=== PATIENT | male | born 1970 | race Hispanic/Latino ===

== ENCOUNTER 2020-02-02 23:57 | Emergency (ER) | payer BC ==
[~2020-02-02] VITALS: Ht 172.7 cm; Wt 102.1 kg
[~2020-02-02 23:57] MED LIST: DOXYCYCLINE HY150 MG PO
[2020-02-03] MEDS ORDERED: MULTIVITAMINS- 12 INJECTION 10 ML, FOLIC ACID MDV 5 MG, THIAMINE HCL INJ 100 MG in SODI... IV ONE ×4
[2020-02-03] MEDS ORDERED: SODIUM CHLORIDE 0.9% 1000ML 1,000 ML IV ONE
[2020-02-03] MEDS ORDERED: SODIUM CHLORIDE 0.9% 1000ML 1,000 ML ONE (00:07)
[2020-02-03 00:24] LABS: BASOPHILS # (AUTO) 0.1 (0.0-0.1); BASOPHILS % 0.6 % (0.0-1.0); EOSINOPHILS % 0.2 % (0.0-6.0); HEMATOCRIT 44.2 % (38.2-49.6); HEMOGLOBIN 14.6 g/dL (14.0-18.0); LYMPHOCYTES # (AUTO) 1.4 (1.0-3.2); LYMPHOCYTES % 17.1 % (18.0-39.1); MEAN CORPUSCULAR HEMOGLOBIN 30.4 pg (28-32); MEAN CORPUSCULAR VOLUME 91.9 fL (81-99); MONOCYTES # (AUTO) 0.6 (0.2-0.8); MONOCYTES % 7.2 % (4.4-11.3); NEUTROPHILS # (AUTO) 6.2 (2.1-6.9); NEUTROPHILS % 74.5 % (38.7-80.0); PLATELET COUNT 220 x10e3/uL (140-360); RED BLOOD COUNT 4.81 x10e6/uL (4.3-5.7); RED CELL DISTRIBUTION WIDTH 13.5 % (11.7-14.4)
--- NOTE | 2020-02-03 00:24 | Emergency Department Note ---
History of Present Illnes History of Present Illness Chief Complaint: General Medicine Complaints History of Present Illness This is a 50 year old male presents with complaint of weakness and dizziness especially more so when he stands up. Patient reports that from 8 PM to 4 AM he consumed a very large amount of alcohol and then slept most of the day. States when he woke up had a hangover didn't feel like eating or drinking then tonight got to the point where when he stands up he feels weak and dizzy. Per EMS on a stated patient up at home his heart rate went from 106-146. Patient denies chest pain shortness of breath nausea vomiting and diarrhea. Patient also denies abdominal pain. . Historian: Patient Arrival Mode: [facility] Onset (how long ago): hour(s) (2) Location: ALL OVER Quality: DIZZY AND WEAKNESS, ESPICIALLY WHEN HE STANDS UP Radiation: non-radiation Severity: moderate Onset quality: gradual Duration (how long): hour(s) (2) Timing of current episode: constant Progression: waxing and waning Chronicity: new Context: recent illness, recent surgery Relieving factors: none Exacerbating factors: none Associated symptoms: denies other symptoms Treatments prior to arrival: none Past Medical/Family History Physician Review I have reviewed the patient's past medical and family history. Any updates have been documented here. Past Medical History Recent Fever: No Clinical Suspicion of Infectio: No New/Unexplained Change in Ment: No Past Medical History: Hypertension Past Surgical History: Appendectomy Social History Smoking Cessation: Never Smoker Alcohol Use: Social Any Illegal Drug Use: No Family History Family history of heart diseas: No Other Last Tetanus: UTD Review of Systems Review of Systems Constitutional: no symptoms EENTM: no symptoms Cardiovascular: no symptoms Respiratory: no symptoms Gastrointestinal: no symptoms Genitourinary: no symptoms Musculoskeletal: no symptoms Neurological: as per HPI Psychological: no symptoms Endocrine: no symptoms Hematological/Lymphatic: no symptoms Review of other systems All other systems reviewed and negative. Physical Exam Related Data Allergies: Coded Allergies: No Known Allergies (Unverified , 06/24/16) Triage Vital Signs Vital Signs Date Time Temp Pulse Resp B/P (MAP) Pulse Ox O2 Delivery O2 Flow Rate FiO2 02/03/20 00:06 98.5 106 21 150/89 98 Vital signs reviewed: Yes Physical Exam CONSTITUTIONAL Constitutional: well-developed, well-nourished HENT HENT: normocephalic, atraumatic, mucosae dry (SEVERE), nose normal HENT L/R: left ext ear normal, right ext ear normal EYES Eyes: PERRL, conjunctivae normal NECK Neck: ROM normal PULMONARY Pulmonary: effort normal, breath sounds normal CARDIOVASCULAR Cardiovascular: regular rhythm, heart sounds normal, capillary refill normal, normal rate GASTROINTESTINAL Abdominal: soft, nontender, bowel sounds normal GENITOURINARY Genitourinary: exam deferred SKIN Skin: warm, dry MUSCULOSKELETAL Musculoskeletal: ROM normal NEUROLOGICAL Neurological: alert, oriented x 3, no gross motor or sensory deficits PSYCHOLOGICAL Psychological: mood/affect normal, judgement normal Results Laboratory Laboratory Laboratory Tests Test 02/03/20 00:45 02/03/20 00:01 Urine Color Yellow (YELLOW) Urine Clarity Clear (CLEAR) Urine pH 8.5 (5 - 7) Urine Specific [place] 1.020 (1.010-1.025) Urine Protein Negative (NEGATIVE) Urine Glucose (UA) Negative (NEGATIVE) Urine Ketones Trace (NEGATIVE) Urine Blood Negative (NEGATIVE) Urine Nitrite Negative (NEGATIVE) Urine Bilirubin Negative (NEGATIVE) Urine Urobilinogen 0.2 mg/dL (0.2 - 1) Urine Leukocyte Esterase Negative (NEGATIVE) Urine RBC 0-5 /HPF (0-5) Urine WBC 0-5 /HPF (0-5) Urine Epithelial Cells Few /LPF (NONE) Urine Bacteria Few /HPF (NONE) White Blood Count 8.32 x10e3/uL (4.8-10.8) Red Blood Count 4.81 x10e6/uL (4.3-5.7) Hemoglobin 14.6 g/dL (14.0-18.0) Hematocrit 44.2 % (38.2-49.6) Mean Corpuscular Volume 91.9 fL (81-99) Mean Corpuscular Hemoglobin 30.4 pg (28-32) Mean Corpuscular Hemoglobin Concent 33.0 g/dL (31-35) Red Cell Distribution Width 13.5 % (11.7-14.4) Platelet Count 220 x10e3/uL (140-360) Neutrophils (%) (Auto) 74.5 % (38.7-80.0) Lymphocytes (%) (Auto) 17.1 % (18.0-39.1) Monocytes (%) (Auto) 7.2 % (4.4-11.3) Eosinophils (%) (Auto) 0.2 % (0.0-6.0) Basophils (%) (Auto) 0.6 % (0.0-1.0) Neutrophils # (Auto) 6.2 (2.1-6.9) Lymphocytes # (Auto) 1.4 (1.0-3.2) Monocytes # (Auto) 0.6 (0.2-0.8) Eosinophils # (Auto) 0.0 (0.0-0.4) Basophils # (Auto) 0.1 (0.0-0.1) Absolute Immature Granulocyte (auto 0.03 x10e3/uL (0-0.1) Sodium Level 143 mmol/L (136-145) Potassium Level 3.5 mmol/L (3.5-5.1) Chloride Level 106 mmol/L (98-107) Carbon Dioxide Level 24 mmol/L (22-29) Anion Gap 16.5 mmol/L (8-16) Blood Urea Nitrogen 8 mg/dL (7-26) Creatinine 0.90 mg/dL (0.72-1.25) Estimat Glomerular Filtration Rate > 60 ML/MIN (60-) BUN/Creatinine Ratio 9 (6-25) Glucose Level 106 mg/dL (74-118) Calcium Level 8.8 mg/dL (8.4-10.2) Magnesium Level 1.7 MG/DL (1.3-2.1) Total Bilirubin 0.6 mg/dL (0.2-1.2) Aspartate Amino Transf (AST/SGOT) 30 IU/L (5-34) Alanine Aminotransferase (ALT/SGPT) 29 IU/L (0-55) Alkaline Phosphatase 70 IU/L (40-150) Creatine Kinase 384 IU/L (30-200) Creatine Kinase MB 2.60 ng/mL (0-5.0) Troponin I 0.017 ng/mL (0-0.300) Total Protein 7.4 g/dL (6.5-8.1) Albumin 4.0 g/dL (3.5-5.0) Globulin 3.4 g/dL (2.3-3.5) Albumin/Globulin Ratio 1.2 (0.8-2.0) Lab results reviewed: Yes Procedures 12 Lead ECG Interpretation Water Team Leader: Interpreted by ED physician Date: Feb 03, 2020 Time: 00:03 Rhythm: sinus rhythm Rate: normal BPM: 97 QRS axis: normal ST segments normal: Yes T waves normal: Yes Other findings: no other findings Clinical Impression: normal ECG Critical Care Time Subsequent provider I assumed direction of critical care for this patient from another provider of my specialty. Assessment & Plan Reassessment Reassessment time: 03:44 Reassessment At this time patient's disease feels much better he can now stand up without getting dizzy or feeling lightheaded. Assessment & Plan Final Impression: (1) VOLUME DEPLETION, UNSPECIFIED Assessment & Plan Patient presents with dizziness and weakness upon standing after heavy drinking yesterday. Patient denies chest pain shortness of breath abdominal pain. CBC CMP cardiac enzymes EKG ordered to eval for electrolyte abnormality renal insufficie ncy and dehydration myocardial infarction. 1 L normal saline IV bolus ordered. Banana bag ordered at 250 mL per hour 1 L. Patient to be discharged home. Instructed to increase water intake. Patient discharged with a prescription of Zofran ODT 4 mg 1 sublingual every 6 hours when necessary nausea. Also prescribed Protonix 40 mg 1 by mouth daily. Patient instructed to follow up with PCP in 2 days if he still having issues or concerns. Last Vital Signs Date Time Temp Pulse Resp B/P (MAP) Pulse Ox O2 Delivery O2 Flow Rate FiO2 02/03/20 00:06 98.5 106 21 150/89 98 Home Meds Reported Medications Doxycycline Hyclate (DOXYCYCLINE HYCLATE) 150 Mg Tablet.dr, 150 MG PO DAILY 06/24/16 Medications in the ED Sodium Chloride 1,000 ml @ 999 mls/hr Q1H1M ONCE IV Last administered on 02/03/20at 00:05; Admin Dose 999 MLS/HR; Start 02/03/20 at 00:00; Stop 02/03/20 at 01:00 Multivitamins 10 ml/Folic Acid 5 mg/Thiamine HCl 100 mg/Sodium Chloride 1,012 ml @ 250 mls/hr Q4H3M ONCE IV ; Start 02/03/20 at 00:00; Stop 02/03/20 at 04:02 Sodium Chloride 1,000 ml @ ud STK-MED ONCE .ROUTE ; Start 02/03/20 at 00:07; Stop 02/03/20 at 00:02; Status DC TERRIE GRACE MD Feb 03, 2020 00:24
[2020-02-03 00:36] LABS: ALANINE AMINOTRANSFERASE 29 IU/L (0-55); ALBUMIN/GLOBULIN RATIO 1.2 (0.8-2.0); ALKALINE PHOSPHATASE 70 IU/L (40-150); ANION GAP 16.5 mmol/L (8-16); BLOOD UREA NITROGEN 8 mg/dL (7-26); BUN/CREATININE RATIO 9 (6-25); CALCIUM 8.8 mg/dL (8.4-10.2); CARBON DIOXIDE 24 mmol/L (22-29); CHLORIDE 106 mmol/L (98-107); CREATINE KINASE 384 IU/L (30-200); EST GLOMERULAR FILTRATION RATE > 60 ML/MIN (60-); GLUCOSE 106 mg/dL (74-118); POTASSIUM 3.5 mmol/L (3.5-5.1); SODIUM 143 mmol/L (136-145)
[2020-02-03 01:09] LABS: CLARITY,URINE CLEAR (CLEAR); COLOR,URINE YELLOW (YELLOW)
[2020-02-03 01:10] LABS: BILIRUBIN,URINE NEGATIVE (NEGATIVE); KETONES,URINE TRACE (NEGATIVE); LEUKOCYTE ESTERASE ,URINE NEGATIVE (NEGATIVE); NITRITE,URINE NEGATIVE (NEGATIVE); PROTEIN,URINE DIPSTICK NEGATIVE (NEGATIVE); URINE UROBILINOGEN 0.2 mg/dL (0.2 - 1)
[2020-02-03 01:25] LABS: BACTERIA,URINE FEW /HPF; EPITHELIAL CELLS,URINE FEW /LPF; RBC,URINE 0-5 /HPF (0-5); WBC,URINE (MAN) 0-5 /HPF (0-5)
[2020-02-03] MEDS ORDERED: ONDANSETRON HCL INJ 2MG/ML 2ML 2 MG/ML VIAL IV STA (03:21)
[2020-02-03] MEDS ORDERED: PANTOPRAZOLE 40 MG 10ML VIAL IV STA (03:21)
[2020-02-03 04:05] VITALS: BP 147/100
== END 2020-02-03 05:09 | disposition home or self-care (01) ==
LOC: ER 23:57
DX: R42 Dizziness and giddiness (principal); R53.1 Weakness; E86.9 Volume depletion, unspecified; I10 Essential (primary) hypertension
CPT/HCPCS: 36415; 80053; 81001; 82550; 82553; 83735; 84484; 85025; 93005; 99284; C9113; J2405; J3411; J7030

== ENCOUNTER 2022-04-25 19:48 | Emergency (ER) | payer BC, OTHER ==
[~2022-04-25] VITALS: Ht 172.7 cm; Wt 102.1 kg
[2022-04-25 20:23] LABS: BASOPHILS % 0.6 % (0.0-1.0); EOSINOPHILS % 0.6 % (0.0-6.0); HEMATOCRIT 44.4 % (38.2-49.6); HEMOGLOBIN 15.4 g/dL (14.0-18.0); LYMPHOCYTES % 16.1 % (18.0-39.1); MEAN CORPUSCULAR HEMOGLOBIN 31.1 pg (28-32); MEAN CORPUSCULAR HGB CONC 34.7 g/dL (31-35); MEAN CORPUSCULAR VOLUME 89.7 fL (81-99); MONOCYTES # (AUTO) 0.5 (0.2-0.8); MONOCYTES % 7.6 % (4.4-11.3); NEUTROPHILS # (AUTO) 4.8 (2.1-6.9); NEUTROPHILS % 74.8 % (38.7-80.0); PLATELET COUNT 195 x10e3/uL (140-360); RED BLOOD COUNT 4.95 x10e6/uL (4.3-5.7); RED CELL DISTRIBUTION WIDTH 13.1 % (11.7-14.4)
[2022-04-25 20:40] LABS: AMPHETAMINES SCREEN,URINE NEGATIVE (NEGATIVE); BENZODIAZEPINES SCREEN,URINE NEGATIVE (NEGATIVE); PHENCYCLIDINE SCREEN,URINE NEGATIVE (NEGATIVE)
[2022-04-25 20:47] LABS: ALANINE AMINOTRANSFERASE 50 IU/L (0-55); ALBUMIN 4.2 g/dL (3.5-5.0); ALBUMIN/GLOBULIN RATIO 1.2 (0.8-2.0); ALKALINE PHOSPHATASE 85 IU/L (40-150); BLOOD UREA NITROGEN 15 mg/dL (7-26); BUN/CREATININE RATIO 17 (6-25); CALCIUM 9.4 mg/dL (8.4-10.2); CARBON DIOXIDE 26 mmol/L (22-29); CHLORIDE 103 mmol/L (98-107); CREATINE KINASE 112 IU/L (30-200); CREATININE, SERUM 0.86 mg/dL (0.72-1.25); GLUCOSE 107 mg/dL (74-118); SODIUM 141 mmol/L (136-145)
[2022-04-25 21:23] VITALS: BP 153/84
== END 2022-04-25 21:27 | disposition home or self-care (01) ==
LOC: ER 19:55
DX: R07.9 Chest pain, unspecified (principal); I10 Essential (primary) hypertension
CPT/HCPCS: 36415; 71045; 80053; 80307; 82550; 82553; 83690; 83880; 84484; 85025; 85379; 93005; 99283

== ENCOUNTER → 2023-10-03 | Day surgery (SDC) | payer BC, OTHER ==
[2023-09-19 13:46] LABS: BASOPHILS # (AUTO) 0.1 (0.0-0.1); BASOPHILS % 0.8 % (0.0-1.0); EOSINOPHILS # (AUTO) 0.1 (0.0-0.4); EOSINOPHILS % 1.4 % (0.0-6.0); HEMATOCRIT 46.5 % (38.2-49.6); HEMOGLOBIN 15.7 g/dL (14.0-18.0); LYMPHOCYTES # (AUTO) 1.6 (1.0-3.2); LYMPHOCYTES % 23.7 % (18.0-39.1); MEAN CORPUSCULAR HEMOGLOBIN 30.7 pg (28-32); MEAN CORPUSCULAR HGB CONC 33.8 g/dL (31-35); MONOCYTES # (AUTO) 0.4 (0.2-0.8); MONOCYTES % 6.7 % (4.4-11.3); NEUTROPHILS # (AUTO) 4.4 (2.1-6.9); NEUTROPHILS % 67.2 % (38.7-80.0); PLATELET COUNT 211 x10e3/uL (140-360); RED BLOOD COUNT 5.11 x10e6/uL (4.3-5.7); RED CELL DISTRIBUTION WIDTH 12.5 % (11.7-14.4); WHITE BLOOD COUNT 6.58 x10e3/uL (4.8-10.8)
[2023-09-19 14:08] LABS: ANION GAP 14.8 mmol/L (8-16); CALCIUM 9.8 mg/dL (8.4-10.2); CREATININE, SERUM 0.85 mg/dL (0.72-1.25); POTASSIUM 3.8 mmol/L (3.5-5.1)
[~2023-10-03] MED LIST changes: +ACETAMINOPHEN 1000 MG/100 ML 100 ML IV ONE; +BENICAR20 MG PO; +BUPIVACAINE HCL 0.5% INJ 30 ML VIAL INJ ONE; +CEFAZOLIN SODIUM 2 GM ONE; +DEXAMETHASONE SOD PHOS INJ 4 MG/ML SDV IV ONE; +EPHEDRINE SULFATE INJ 50 MG/ML VIAL IV ONE; +HYDROCHLOROTH12.5 MG PO; +LIDOCAINE 1% W/EPINEPHRINE 20 ML VIAL ONE; +LIDOCAINE HCL 2% LOCAL INJ 5 ML SDV VIAL INJ ONE; +NICARDIPINE HCL SOLN 10 ML ONE; +ONDANSETRON HCL INJ 2MG/ML 2ML 2 MG/ML VIAL IV ONE; +PANTOPRAZOLE SO40 MG PO; +PAXIL20 MG PO; +PROPOFOL IV EMULSION 10 MG/ML 20 ML VIAL IV ONE; +SEVOFLURANE INHAL SOLN 250 ML PEN BTL INH ONE; +VALACYCLOVIR500 MG PO
[2023-10-03] MEDS: CEFAZOLIN SODIUM 2 GM ONE (06:15)
[2023-10-03] MEDS: LACTATED RINGER'S 1,000 ML ONE (06:16)
[2023-10-03] MEDS: HYDROMORPHONE 1MG/1ML INJ ONE (08:46)
[2023-10-03] MEDS: KETOROLAC TROMETHAMINE 30 MG/ML VIAL ONE (08:46)
[2023-10-03 09:25] VITALS: BP 124/80; PULSE 76; RESP 16; O2SAT 96
== END | disposition home or self-care (01) ==
LOC: OR 05:33
PROVIDERS: ATTEND Orthopaedic Surgery
DX: S83.232A Complex tear of medial meniscus, current injury, left knee, initial encounter (principal); S83.282A Other tear of lateral meniscus, current injury, left knee, initial encounter; M22.42 Chondromalacia patellae, left knee; M67.52 Plica syndrome, left knee; I10 Essential (primary) hypertension; R00.1 Bradycardia, unspecified; E66.01 Morbid (severe) obesity due to excess calories; F41.9 Anxiety disorder, unspecified; X58.XXXA Exposure to other specified factors, initial encounter; Z01.810 Encounter for preprocedural cardiovascular examination; Z01.812 Encounter for preprocedural laboratory examination; Z79.899 Other long term (current) drug therapy
CPT/HCPCS: 29879; 29882; 36415; 80048; 85025; 93005; J0131; J1100; J1170; J1885; J2001; J2405; J2704; J7121; C1713